=== PATIENT | female | born 1995 | race Caucasian/White ===

== ENCOUNTER → 2016-12-24 | Outpatient (CLI) | payer BC | LOC: MW.CHFP 09:41 | PROVIDERS: ATTEND Emergency Medicine | DX: E03.9 Hypothyroidism, unspecified (principal) | CPT/HCPCS: 36415; 84443 ==

== ENCOUNTER 2017-01-26 21:59 | Emergency (ER) | payer BC ==
--- NOTE | 2017-01-26 22:12 | EDM.PDOC ---
ED HPI GENERAL MEDICAL PROBLEM - General Chief Complaint: Abdominal Pain Stated Complaint: ABDOMINAL PAIN Time Seen by Provider: 01/26/17 22:08 - History of Present Illness INITIAL COMMENTS - FREE TEXT/NARRATIVE: HISTORY AND PHYSICAL: History of present illness: Patient is a 21-year-old white female she is a concern of 10 day history of epigastric abdominal discomfort off and on x10 days if better today this does appear to be related to food she's had no fever chills vomiting diarrhea or other complaints she does have a sibling with similar symptoms with gallbladder disease. Review of systems: As per history of present illness and below otherwise all systems reviewed and negative. Past medical history: As per history of present illness and as reviewed below otherwise noncontributory. Surgical history: As per history of present illness and as reviewed below otherwise noncontributory. Social history: No reported history of drug or alcohol abuse. Family history: As per history of present illness and as reviewed below otherwise noncontributory. Physical exam: HEENT: Atraumatic, normocephalic, pupils reactive, negative for conjunctival pallor or scleral icterus, mucous membranes moist, throat clear, neck supple, nontender, trachea midline. Lungs: Clear to auscultation, breath sounds equal bilaterally, chest nontender. Heart: S1S2, regular, negative for clicks, rubs, or JVD. Abdomen: Soft, nondistended, nontender. Negative for masses or hepatosplenomegaly. Negative for costovertebral tenderness. Pelvis: Stable nontender. Genitourinary: Deferred. Rectal: Deferred. Extremities: Atraumatic, negative for cords or calf pain. Neurovascular unremarkable. Neuro: Awake, alert, oriented. Cranial nerves II through XII unremarkable. Cerebellum unremarkable. Motor and sensory unremarkable throughout. Exam nonfocal. Diagnostics: CBC CMP UA hCG amylase lipase Therapeutics: Toradol 60 mg intramuscular Impression: #1 intermittent abdominal pain rule out biliary colic Definitive disposition and diagnosis as appropriate pending reevaluation and review of above. epigastric area Pain Score (Numeric/FACES): 4 - Related Data Allergies Allergy/AdvReac Type Severity Reaction Status Date / Time No Known Allergies Allergy Verified 01/26/17 22:04 ED ROS GENERAL - Review of Systems Review Of Systems: ROS reveals no pertinent complaints other than HPI. ED EXAM, GENERAL - Physical Exam Exam: See Below (Dictated) Course - Vital Signs Last Recorded V/S: Last Vital Signs Temp 36.5 C 01/26/17 22:04 Pulse 103 H 01/26/17 22:04 Resp 17 01/26/17 22:04 BP 125/82 01/26/17 22:04 Pulse Ox 97 01/26/17 22:04 - Orders/Labs/Meds Labs: Laboratory Tests 01/26/17 01/26/17 01/26/17 Range/Units 22:15 22:15 22:30 WBC 10.04 (4.0-11.0) K/uL RBC 4.37 (4.30-5.90) M/uL Hgb 12.3 (12.0-16.0) g/dL Hct 38.1 (36.0-46.0) % MCV 87.2 (80.0-98.0) fL MCH 28.1 (27.0-32.0) pg MCHC 32.3 (31.0-37.0) g/dL RDW Std Deviation 42.4 (28.0-62.0) fl RDW Coeff of Amelia 13 (11.0-15.0) % Plt Count 311 (150-400) K/uL MPV 9.70 (7.40-12.00) fL Neut % (Auto) 44.4 L (48.0-80.0) % Lymph % (Auto) 36.1 (16.0-40.0) % [place] % (Auto) 3.5 (0.0-15.0) % Eos % (Auto) 15.2 H (0.0-7.0) % Baso % (Auto) 0.8 (0.0-1.5) % Neut # (Auto) 4.5 (1.4-5.7) K/uL Lymph # (Auto) 3.6 H (0.6-2.4) K/uL [place] # (Auto) 0.4 (0.0-0.8) K/uL Eos # (Auto) 1.5 H (0.0-0.7) K/uL Baso # (Auto) 0.1 (0.0-0.1) K/uL Nucleated RBC % 0.0 /100WBC Nucleated RBCs # 0 K/uL Sodium 138 (136-146) mmol/L Potassium 3.8 (3.5-5.1) mmol/L Chloride 107 (98-110) mmol/L Carbon Dioxide 21 (21-31) mmol/L BUN 13 (6.0-23.0) mg/dL Creatinine 0.9 (0.6-1.5) mg/dL Est Cr Clr Drug Dosing 76.89 mL/min Estimated GFR (MDRD) > 60.0 ml/min Glucose 114 H (60-110) mg/dL Calcium 8.7 L (8.8-10.8) mg/dL Total Bilirubin 0.2 (0.1-1.5) mg/dL AST 17 (5-40) IU/L ALT 16 (8-54) IU/L Alkaline Phosphatase 62 (40-150) Total Protein 7.1 (6.0-8.0) g/dL Albumin 4.1 (3.5-5.0) g/dL Globulin 3.0 (2.0-3.5) g/dL Albumin/Globulin Ratio 1.4 (1.3-2.8) Amylase 44 (10-90) U/L Lipase 33 (7-80) U/L Urine Color Urine Appearance Urine pH (5.0-8.0) Ur Specific [place] (1.001-1.035) Urine Protein (NEGATIVE) mg/dL Urine Glucose (UA) (NEGATIVE) mg/dL Urine Ketones (NEGATIVE) mg/dL Urine Occult Blood (NEGATIVE) Urine Nitrite (NEGATIVE) Urine Bilirubin (NEGATIVE) Urine Urobilinogen (<2.0) EU/dL Ur Leukocyte Esterase (NEGATIVE) Urine RBC (0-2/HPF) Urine WBC (0-5/HPF) Ur Epithelial Cells (NONE-FEW) Urine Bacteria (NEGATIVE) Urine HCG, Qual NEGATIVE (NEGATIVE) 01/26/17 Range/Units 22:30 WBC (4.0-11.0) K/uL RBC (4.30-5.90) M/uL Hgb (12.0-16.0) g/dL Hct (36.0-46.0) % MCV (80.0-98.0) fL MCH (27.0-32.0) pg MCHC (31.0-37.0) g/dL RDW Std Deviation (28.0-62.0) fl RDW Coeff of Amelia (11.0-15.0) % Plt Count (150-400) K/uL MPV (7.40-12.00) fL Neut % (Auto) (48.0-80.0) % Lymph % (Auto) (16.0-40.0) % [place] % (Auto) (0.0-15.0) % Eos % (Auto) (0.0-7.0) % Baso % (Auto) (0.0-1.5) % Neut # (Auto) (1.4-5.7) K/uL Lymph # (Auto) (0.6-2.4) K/uL [place] # (Auto) (0.0-0.8) K/uL Eos # (Auto) (0.0-0.7) K/uL Baso # (Auto) (0.0-0.1) K/uL Nucleated RBC % /100WBC Nucleated RBCs # K/uL Sodium (136-146) mmol/L Potassium (3.5-5.1) mmol/L Chloride (98-110) mmol/L Carbon Dioxide (21-31) mmol/L BUN (6.0-23.0) mg/dL Creatinine (0.6-1.5) mg/dL Est Cr Clr Drug Dosing mL/min Estimated GFR (MDRD) ml/min Glucose (60-110) mg/dL Calcium (8.8-10.8) mg/dL Total Bilirubin (0.1-1.5) mg/dL AST (5-40) IU/L ALT (8-54) IU/L Alkaline Phosphatase (40-150) Total Protein (6.0-8.0) g/dL Albumin (3.5-5.0) g/dL Globulin (2.0-3.5) g/dL Albumin/Globulin Ratio (1.3-2.8) Amylase (10-90) U/L Lipase (7-80) U/L Urine Color YELLOW Urine Appearance CLEAR Urine pH 5.5 (5.0-8.0) Ur Specific [place] <= 1.005 (1.001-1.035) Urine Protein NEGATIVE (NEGATIVE) mg/dL Urine Glucose (UA) NEGATIVE (NEGATIVE) mg/dL Urine Ketones NEGATIVE (NEGATIVE) mg/dL Urine Occult Blood TRACE-LYSED (NEGATIVE) Urine Nitrite NEGATIVE (NEGATIVE) Urine Bilirubin NEGATIVE (NEGATIVE) Urine Urobilinogen 0.2 (<2.0) EU/dL Ur Leukocyte Esterase NEGATIVE (NEGATIVE) Urine RBC 0-2 (0-2/HPF) Urine WBC NONE SEEN (0-5/HPF) Ur Epithelial Cells OCCASIONAL (NONE-FEW) Urine Bacteria RARE (NEGATIVE) Urine HCG, Qual (NEGATIVE) Meds: Medications Discontinued Medications Generic Name Dose Route Start Last Admin Trade Name Morgan PRN Reason Stop Dose Admin Ketorolac Tromethamine 60 mg 01/26/17 22:35 01/26/17 22:39 Toradol IM 01/26/17 22:36 60 mg ONETIME ONE Administration Departure - Departure Time of Disposition: 22:51 Disposition: Home, Self-Care 01 Condition: good Clinical Impression: Abdominal pain - Discharge Information Forms: ED Department Discharge Additional Instructions: The following information is given to patients seen in the emergency department who are being discharged to home. This information is to outline your options for follow-up care. We provide all patients seen in our emergency department with a follow-up referral. The need for follow-up, as well as the timing and circumstances, are variable depending upon the specifics of your emergency department visit. If you don't have a primary care physician on staff, we will provide you with a referral. We always advise you to contact your personal physician following an emergency department visit to inform them of the circumstance of the visit and for follow-up with them and/or the need for any referrals to a consulting specialist. The emergency department will also refer you to a specialist when appropriate. This referral assures that you have the opportunity for followup care with a specialist. All of these measure are taken in an effort to provide you with optimal care, which includes your followup. Under all circumstances we always encourage you to contact your private physician who remains a resource for coordinating your care. When calling for followup care, please make the office aware that this follow-up is from your recent emergency room visit. If for any reason you are refused follow-up, please contact the [facility] emergency department at and asked to speak to the emergency department charge nurse. Ultrasound as directed as outpatient followup private medical doctor one to 2 days avoid fatty foods return as needed as discussed
[2017-01-26] MEDS ORDERED: Ketorolac 60 MG/2 ML SDV IM ONE (22:35)
[2017-01-26 22:44] LABS: CHLORIDE,CL 107 mmol/L (98-110); SODIUM,NA 138 mmol/L (136-146)
[2017-01-26 23:04] VITALS: BP 120/80
== END 2017-01-26 23:01 | disposition home or self-care (01) ==
LOC: MW.ED 21:59
DX: R10.9 Unspecified abdominal pain (principal)
CPT/HCPCS: 36415; 80053; 81001; 81025; 82150; 83690; 85025; 96372; 99284; J1885; 99283

== ENCOUNTER 2018-05-05 05:24 | Emergency (ER) | payer OTHER, BC ==
[2018-05-05 05:50] VITALS: BP 146/102
[2018-05-05] MEDS ORDERED: Ketorolac 60 MG/2 ML SDV IM ONE (05:53)
--- NOTE | 2018-05-05 05:58 | EDM.PDOC ---
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 She says she has had nerve issues with her back and she follows with Dr. Taylor in our clinic but is also seen a pain management doctor in [place] and takes gabapentin for her nerve issues and has no major problems with back pain as a result of that. She was in her usual state of good health when she did this activity and felt the sudden onset of pain. She did not pass out or black out and did not fall or hit the area. The pain does not radiate to her leg and there is no numbness or weakness in her leg and she has had no bowel or bladder disturbances. Because she was at work she was unable to take anything for the pain. The patient denies as she is on control 3 months at a time and is compliant with that. Review of systems: As per history of present illness and below otherwise all systems reviewed and negative. Past medical history: As per history of present illness and as reviewed below otherwise noncontributory. Surgical history: As per history of present illness and as reviewed below otherwise noncontributory. Social history: No reported history of drug or alcohol abuse. Family history: As per history of present illness and as reviewed below otherwise noncontributory. Physical exam: General: Well-developed well-nourished overweight female who is nontoxic and indurated into the ED without distress. Vital signs are noted by me HEENT: Atraumatic, normocephalic, negative for conjunctival pallor or scleral icterus, mucous membranes moist, throat clear, neck supple, nontender, trachea midline. Lungs: Clear to auscultation, breath sounds equal bilaterally, chest nontender. Heart: S1S2, regular rate and rhythm no overt murmurs Abdomen: Soft, nondistended, nontender. Negative for costovertebral tenderness. Pelvis: Deferred Genitourinary: Deferred. Rectal: Deferred. Extremities: Atraumatic, negative for cords or calf pain. Neurovascular unremarkable. Neuro: Awake, alert, oriented. Cranial nerves II through XII unremarkable. Cerebellum unremarkable. Motor and sensory unremarkable throughout. Exam nonfocal. Dorsi and plantar flexion are intact 5/5 inclusive of the great toe and all strength in lower extremity is 5/5. Inversion and eversion of the feet is intact and patellar reflexes are +2 over 4 bilaterally Back: There are no midline step-offs in his defects of the thoracic or lumbar spine and there is reproducible tenderness with palpation of the left lower lumbar area without defects or deformities. Diagnostics: [] Therapeutics: Toradol Patient drove herself here and would like to drive home so I will give her muscle relaxers for home and have advised her to have close follow-up with her provider in our clinic and her pain specialist as needed. I will give her diclofenac and advised her to stop her meloxicam and advised her on reasons to return to the ED Impression: Lumbar back pain/strain Definitive disposition and diagnosis as appropriate pending reevaluation and review of above. Back Pain Score (Numeric/FACES): 7 - Related Data Allergies Allergy/AdvReac Type Severity Reaction Status Date / Time No Known Allergies Allergy Verified 01/26/17 22:04 Home Meds: Home Meds ALPRAZolam [Alprazolam] 1 mg PO BID PRN 01/26/17 [History] Gabapentin [Neurontin] 300 mg PO DAILY 01/26/17 [History] Levothyroxine [Synthroid] 100 mcg PO DAILY 01/26/17 [History] Meloxicam 15 mg PO DAILY 01/26/17 [History] Rizatriptan Benzoate [Rizatriptan] 5 mg PO DAILY PRN 01/26/17 [History] DULoxetine [Cymbalta] 60 mg PO DAILY 05/05/18 [History] l-Norgest/E.estradion-E.estrad [Amethia 0.15-0.03-0.01 MG] 1 each PO DAILY 05/05 [History] Past Medical History HEENT History: Reports: None Cardiovascular History: Reports: None Respiratory History: Reports: None Gastrointestinal History: Reports: None Genitourinary History: Reports: None SERVICE COUNSELOR History: Reports: None Musculoskeletal History: Reports: None Neurological History: Reports: Migraines Psychiatric History: Reports: Anxiety Endocrine/Metabolic History: Reports: Hypothyroidism Hematologic History: Reports: None Immunologic History: Reports: None Oncologic (Cancer) History: Reports: None Dermatologic History: Reports: None - Infectious Disease History Infectious Disease History: Reports: None - Past Surgical History Head Surgeries/Procedures: Reports: None HEENT Surgical History: Reports: None Cardiovascular Surgical History: Reports: None GI Surgical History: Reports: Appendectomy Dermatological Surgical History: Reports: None Social & Family History - Tobacco Use Smoking Status *Q: Never Smoker - Caffeine Use Caffeine Use: Reports: None ED ROS GENERAL - Review of Systems Review Of Systems: ROS reveals no pertinent complaints other than HPI. ED EXAM, GENERAL - Physical Exam Exam: See Below (See dictation) Course - Vital Signs Last Recorded V/S: Last Vital Signs Temp 36.6 C 05/05/18 05:41 Pulse 108 H 05/05/18 05:41 Resp 16 05/05/18 05:41 BP 146/102 H 05/05/18 05:41 Pulse Ox 99 05/05/18 05:41 - Orders/Labs/Meds Orders: Active Orders 24 hr Category Date Time Status Ketorolac [Toradol] Med 05/05/18 05:53 Once 60 mg IM ONETIME ONE Medication Orders Ketorolac Tromethamine (Toradol) 60 mg IM ONETIME ONE Stop: 05/05/18 05:54 Meds: Medications Generic Name Dose Route Start Last Admin Trade Name Freq PRN Reason Stop Dose Admin Ketorolac Tromethamine 60 mg 05/05/18 05:53 Toradol IM 05/05/18 05:54 ONETIME ONE Departure - Departure Time of Disposition: 05:57 Disposition: Home, Self-Care 01 Condition: Good Clinical Impression: Lumbar back sprain Qualifiers: Encounter type: initial encounter Qualified Code(s): S33.5XXA - Sprain of ligaments of lumbar spine, initial encounter - Discharge Information Referrals: Javed Taylor MD [Primary Care Provider] - Additional Instructions: The following information is given to patients seen in the emergency department who are being discharged to home. This information is to outline your options for follow-up care. We provide all patients seen in our emergency department with a follow-up referral. The need for follow-up, as well as the timing and circumstances, are variable depending upon the specifics of your emergency department visit. If you don't have a primary care physician on staff, we will provide you with a referral. We always advise you to contact your personal physician following an emergency department visit to inform them of the circumstance of the visit and for follow-up with them and/or the need for any referrals to a consulting specialist. The emergency department will also refer you to a specialist when appropriate. This referral assures that you have the opportunity for followup care with a specialist. All of these measure are taken in an effort to provide you with optimal care, which includes your followup. Under all circumstances we always encourage you to contact your private physician who remains a resource for coordinating your care. When calling for followup care, please make the office aware that this follow-up is from your recent emergency room visit. If for any reason you are refused follow-up, please contact the [facility] emergency department at and ask to speak to the emergency department charge nurse. [facility] Primary care- [place] [address] Use ice to area of discomfort for the next 24 hours and then switch to heat. Please take prescriptions as needed and directed and if you're using the diclofenac please hold her meloxicam. Please call and schedule a follow-up appointment with Dr. Woods in the clinic or with your pain specialist at [place] for further care and reevaluation and return to ER as needed and as discussed - My Orders Last 24 Hours: My Active Orders 05/05/18 05:53 Ketorolac [Toradol] 60 mg IM ONETIME ONE - Assessment/Plan Last 24 Hours: My Active Orders 05/05/18 05:53 Ketorolac [Toradol] 60 mg IM ONETIME ONE
== END 2018-05-05 06:36 | disposition home or self-care (01) ==
LOC: MW.ED 05:24
DX: S33.5XXA Sprain of ligaments of lumbar spine, initial encounter (principal); E03.9 Hypothyroidism, unspecified; F41.9 Anxiety disorder, unspecified; Z79.899 Other long term (current) drug therapy; X50.9XXA Other and unspecified overexertion or strenuous movements or postures, initial encounter
CPT/HCPCS: 96372; 99283; J1885; 99282

== ENCOUNTER 2020-09-07 07:39 | Day surgery (SDC) | payer BC ==
[~2020-09-07 07:39] MED LIST: Lactated Ringers 1,000 ML IV SCH; Lidocaine 2% 5 ML SDV ONE; Midazolam 1 MG/ML 2 ML SDV ONE; Propofol 200 MG/20 ML SDV ONE; fentaNYL 100 MCG/2 ML SDV ONE
--- NOTE | 2020-09-07 08:45 | PCM.PREANE ---
Preanesthetic Assessment - Anesthesia/Transfusion/Family Hx Anesthesia History: Prior Anesthesia Without Reaction Family History of Anesthesia Reaction: No Transfusion History: No Prior Transfusion(s) Intubation History: Unknown - Review of Systems General: No Symptoms, Night Sweats Cardiovascular: No Symptoms Gastrointestinal: Constipation, Hematochezia Neurological: No Symptoms Other: Reports: None - Physical Assessment Vital Signs: Last Vital Signs Temp 36.0 C L 09/07/20 07:52 Pulse 106 H 09/07/20 07:52 Resp 16 09/07/20 07:52 BP 144/88 H 09/07/20 07:52 Pulse Ox 99 09/07/20 07:52 Height: 5 ft 2 in Weight: 98.43 kg ASA Class: 2 Mental Status: Alert & Oriented x3 Airway Class: Mallampati = 2 Dentition: Reports: Normal Dentition Thyro-Mental Finger Breadths: 3 Mouth Opening Finger Breadths: 3 ROM/Head Extension: Full Lungs: Clear to Auscultation, Normal Respiratory Effort Cardiovascular: Regular Rate, Regular Rhythm - Allergies Allergies/Adverse Reactions: Allergies Allergy/AdvReac Type Severity Reaction Status Date / Time No Known Allergies Allergy Verified 09/01/20 08:17 - Blood Blood Available: No - Anesthesia Plan Pre-Op Medication Ordered: None - Acknowledgements Anesthesia Type Planned: MAC Pt an Appropriate Candidate for the Planned Anesthesia: Yes Alternatives and Risks of Anesthesia Discussed w Pt/Guardian: Yes Pt/Guardian Understands and Agrees with Anesthesia Plan: Yes PreAnesthesia Questionnaire HEENT History: Reports: Other (See Below) Other HEENT History: glasses/contacts Cardiovascular History: Reports: None Respiratory History: Reports: None Gastrointestinal History: Reports: Chronic Constipation, GERD, Irritable Bowel Syndrome Genitourinary History: Reports: None COOKER CHIP History: Reports: None Musculoskeletal History: Reports: Back Pain, Chronic Neurological History: Reports: Migraines Psychiatric History: Reports: Anxiety, Depression, Panic Attack Endocrine/Metabolic History: Reports: Hypothyroidism, Obesity/BMI 30+ (BMI 39.7) Hematologic History: Reports: None Immunologic History: Reports: Other (See Below) Other Immunologic History: MRSA Oncologic (Cancer) History: Reports: None Dermatologic History: Reports: None - Infectious Disease History Infectious Disease History: Reports: Herpes (simplex), MRSA - Past Surgical History Head Surgeries/Procedures: Reports: None HEENT Surgical History: Reports: None Cardiovascular Surgical History: Reports: None Respiratory Surgical History: Reports: None GI Surgical History: Reports: Appendectomy Female Surgical History: Reports: None Endocrine Surgical History: Reports: None Neurological Surgical History: Reports: None Musculoskeletal Surgical History: Reports: None Dermatological Surgical History: Reports: None - SUBSTANCE USE Tobacco Use Status *Q: Former Tobacco User Tobacco Use Within Last Twelve Months: No - HOME MEDS Home Medications: Home Meds ALPRAZolam [Alprazolam] 1 mg PO ASDIRECTED PRN 01/26/17 [History] Gabapentin [Neurontin] 300 mg PO BEDTIME 01/26/17 [History] Levothyroxine [Synthroid] 137 mcg PO DAILY 01/26/17 [History] Meloxicam 15 mg PO DAILY 01/26/17 [History] Rizatriptan Benzoate [Rizatriptan] 10 mg SL ASDIRECTED PRN 01/26/17 [History] Ondansetron [Ondansetron ODT] 4 mg SL ASDIRECTED PRN 09/01/20 [History] Pantoprazole Sodium [Protonix] 40 mg PO DAILY 09/01/20 [History] Propranolol HCl [Propranolol] 60 mg PO DAILY 09/01/20 [History] buPROPion HCL [Bupropion HCl Sr] 150 mg PO BID 09/01/20 [History] l-Norgest/E.estradion-E.estrad [Amethia 0.15-0.03-0.01 MG] 1 tab PO DAILY 09/01/20 [History] traZODone HCl [Trazodone HCl] 50 mg PO BEDTIME PRN 09/01/20 [History] valACYclovir HCl [valACYclovir] 2 tab PO ASDIRECTED PRN 09/01/20 [History] - CURRENT (IN HOUSE) MEDS Current Meds: Current Medications Lactated Ringer's (Ringers, Lactated) 1,000 mls @ 125 mls/hr IV ASDIRECTED FRANSISCO Last Admin: 09/07/20 08:25 Dose: 125 mls/hr Documented by: Discontinued Medications Fentanyl (Sublimaze) Confirm Administered Dose 100 mcg .ROUTE .STK-MED ONE Stop: 09/07/20 07:11 Lidocaine (Xylocaine-Mpf 2%) Confirm Administered Dose 5 ml .ROUTE .STK-MED ONE Stop: 09/07/20 07:11 Midazolam HCl (Versed 1 Mg/Ml) Confirm Administered Dose 2 mg .ROUTE .STK-MED ONE Stop: 09/07/20 07:11 Propofol (Diprivan 20 Ml) Confirm Administered Dose 400 mg .ROUTE .STK-MED ONE Stop: 09/07/20 07:11
[2020-09-07] MEDS ORDERED: Midazolam 1 MG/ML 2 ML SDV ONE (09:20)
[2020-09-07] MEDS ORDERED: fentaNYL 100 MCG/2 ML SDV ONE ×2 (09:25→09:36)
[2020-09-07] MEDS ORDERED: Propofol 200 MG/20 ML SDV ONE ×2 (09:25→09:34)
[2020-09-07] MEDS ORDERED: Glycopyrrolate 0.2 MG/ML SDV ONE (09:31)
--- NOTE | 2020-09-07 10:07 | PCM.OPNOTE ---
- General Post-Op/Procedure Note Date of Surgery/Procedure: 09/07/20 Operative Procedure(s): EGD with Biopsies. COlonoscopy with biopsies Findings: submucosal lesion in cecum - likely a lipoma Mucosal irregularity in the rectum Gastritis dictation number [id number] Pre Op Diagnosis: Epigastric pain. constipation and blood in stool Post-Op Diagnosis: submucosal lesion in cecum - likely a lipoma. Mucosal irregularity in the rectum. Gastritis Primary Surgeon: Axel Love Pathology: biopsies from stomach and colon Complications: None Condition: Good
--- NOTE | 2020-09-07 10:22 | PCM.POSTAN ---
POST ANESTHESIA ASSESSMENT - MENTAL STATUS Mental Status: Alert, Oriented - VITAL SIGNS Vital Signs: Last Vital Signs Temp 36.0 C L 09/07/20 07:52 Pulse 120 H 09/07/20 10:05 Resp 15 09/07/20 10:05 BP 110/80 09/07/20 10:05 Pulse Ox 100 09/07/20 10:05 - RESPIRATORY Respiratory Status: Respiratory Rate WNL, Airway Patent, O2 Saturation Stable - CARDIOVASCULAR CV Status: Pulse Rate WNL, Blood Pressure Stable - GASTROINTESTINAL GI Status: No Symptoms - PAIN Pain Score: 0 - POST OP HYDRATION Hydration Status: Adequate & Stable - OBSERVATIONS Free Text/Narrative:: No anesthesia problems
--- NOTE | 2020-09-07 10:31 | PCM48HPAN ---
Post Anesthesia Note - EVALUATION WITHIN 48HRS OF ANESTHETIC Vital Signs in Normal Range: Yes Patient Participated in Evaluation: Yes Respiratory Function Stable: Yes Airway Patent: Yes Cardiovascular Function Stable: Yes Hydration Status Stable: Yes Pain Control Satisfactory: Yes Nausea and Vomiting Control Satisfactory: Yes Mental Status Recovered: Yes Vital Signs: Last Vital Signs Temp 36.0 C L 09/07/20 07:52 Pulse 120 H 09/07/20 10:05 Resp 15 09/07/20 10:05 BP 110/80 09/07/20 10:05 Pulse Ox 100 09/07/20 10:05 - COMMENTS/OBSERVATIONS Free Text/Narrative:: No anesthesia problems
[2020-09-07 10:33] VITALS: BP 128/70; PULSE 115
--- NOTE | 2020-09-07 16:51 | OR ---
SURGEON: SADIA COLUNGA MD DATE OF PROCEDURE: 09/07/2020 PREOPERATIVE DIAGNOSES: 1. Epigastric pain. 2. Constipation. 3. Occasional blood in stool. POSTOPERATIVE DIAGNOSES: 1. Gastritis. 2. Submucosal lesion in the cecum, potentially a lipoma. 3. Mucosal irregularity in the rectum. PROCEDURES PERFORMED: 1. Colonoscopy with biopsies. 2. Esophagogastroduodenoscopy with biopsies. PRIMARY SURGEON: Sadia Colunga MD ANESTHESIA: With Anesthesiology. EXTENT OF COLONOSCOPY: To the cecum and terminal ileum. EXTENT OF EGD: To at least the second part of duodenum. WITHDRAWAL TIME FOR COLONOSCOPY: 7 minutes. LIMITATIONS: None. BOWEL PREP: Very good. REASON FOR PROCEDURE: The patient is a pleasant 25-year-old female who for the past 6 months will have epigastric pain. She denies any difficulty swallowing. Denies any heartburn. The patient says the tenderness is sometimes associated with food. She has been started on antacid. Originally, she said it was not helping, but now she says it seems the antacids have been helping with the pain. The patient also states that she has occasional blood in her stool. She states she has been told she has IBS with constipation. She uses stool softeners for her bowel movements. She denies any family history of colon cancer. PROCEDURE IN DETAIL: Physical examination was performed. The major risks and benefits associated with the procedure were explained to the patient in detail. The patient verbalized understanding of the same. Now, an IV was started. EKG, pulse, pulse oximetry, blood pressure, and capnography monitored throughout the procedure. Continuous oxygen and sedation were provided by the anesthesiologist. The patient was placed into left lateral decubitus position and a bite block were placed and sedation was begun. After adequate sedation was achieved, an upper endoscope was advanced under direct visualization without any difficulty in the upper GI tract. The anatomy and mucosa of the esophagus, GE junction, stomach, pylorus, and first and second part of duodenum were inspected. Duodenum appeared normal and the scope was withdrawn in the stomach. Both retro and antegrade views of the stomach were done. The patient had a patch of gastritis in the body in the lesser curvature of the stomach. No ulcerations seen. Biopsies were taken of the pylorus to check for H pylori and of the area of the gastritis. The scope was brought up to the GE junction. GE junction was approximately 36 cm from the incisors. GE junction appeared intact with a good squamocolumnar junction. The scope was brought back in the stomach. Biopsy sites had good hemostasis. The stomach was desufflated. The scope was brought up to the esophagus. Esophagus appeared normal. Now, the scope was completely removed and this part of the procedure was terminated. Gloves and scopes were changed. Now, a rectal exam was performed. No rectal masses or polyps were felt. Now, well-lubricated Olympus colonoscope was entered in the rectum and advanced under direct visualization to the level of the cecum. The cecum was identified both visual and anatomic landmarks. Photographs were taken of the cecal cap. Right in the cecum, the patient had about a 2 to 3 cm protruding mass that seemed to be extraluminal. Mucosa over it appeared normal. This could be some type of lipoma. Did do biopsies of the overlying mucosa. The terminal ileum was also intubated. The scope was then slowly withdrawn in a somewhat circular fashion looking at the color, texture, anatomy, and integrity of mucosa from cecum to the anal canal. The patient had a very good bowel prep with some very minimal liquid stool, which was suctioned and irrigated out for a great look at the mucosa. Right in the rectum, the patient had mucosa which had a slight irregularity and that had smaller whitish spots circumferentially. I did do multiple biopsies of this mucosa. The scope was retroflexed in the rectum. Now, biopsies were taken of the mucosa. Scope was then completely removed and the procedure was terminated. ENDOSCOPIC DIAGNOSES: 1. Gastritis. 2. Likely submucosal lesion in the cecum, possibly a lipoma. 3. Some irregular mucosa in the rectum, biopsied. RECOMMENDATIONS: 1. The patient should continue her PPIs. She may follow in the clinic to go over the pathology of her EGD. 2. Followup colonoscopy will depend on pathology, but most likely another one in 10 years or sooner if she develops signs or symptoms such as change in bowel habits or blood in her stool. ZENIA / BOLIVAR /[id number]
== END 2020-09-07 10:15 | disposition home or self-care (01) ==
LOC: MW.SDS 07:39
PROVIDERS: ATTEND Surgery
DX: K59.00 Constipation, unspecified (principal); K29.50 Unspecified chronic gastritis without bleeding; K63.89 Other specified diseases of intestine; K21.9 Gastro-esophageal reflux disease without esophagitis; E03.9 Hypothyroidism, unspecified; K12.0 Recurrent oral aphthae; E66.01 Morbid (severe) obesity due to excess calories; G89.29 Other chronic pain; Z79.899 Other long term (current) drug therapy; Z87.891 Personal history of nicotine dependence; Z68.41 Body mass index [BMI] 40.0-44.9, adult
CPT/HCPCS: 36415; 43239; 45380; 84703; J2001; J2250; J2704; J3010; J3490; J7120; 00813; 88305; 88312

== ENCOUNTER 2023-09-25 19:12 | Emergency (ER) | payer SELFPAY ==
[2023-09-25] MEDS ORDERED: Sodium Chloride 0.9% 10 ML Syringe FLUSH PRN (19:24)
[2023-09-25] MEDS ORDERED: Sodium Chloride 0.9% 2.5 ML Syringe FLUSH PRN (19:24)
[2023-09-25 19:30] LABS: BASOPHILS ABSOLUTE AUTO 0.08 K/uL (0.00-0.20); EOSINOPHILS ABSOLUTE AUTO 0.13 K/uL (0.00-0.45); EOSINOPHILS PERCENT AUTO 1.5 % (0.0-6.0); HEMATOCRIT 41.5 % (37.0-47.0); HEMOGLOBIN 14.4 g/dL (12.0-16.0); IMMATURE GRAN ABSOLUTE AUTO 0.02 K/uL (0.00-0.05); IMMATURE GRAN PERCENT AUTO 0.2 % (0.0-0.4); LYMPHOCYTES ABSOLUTE AUTO 1.91 K/uL (1.00-4.80); LYMPHOCYTES PERCENT AUTO 22.7 % (24.0-44.0); MEAN CORPUSCULAR HEMOGLOBIN 30.3 pg (28.0-32.0); MEAN CORPUSCULAR HGB CONC 34.7 g/dL (32.0-36.0); MEAN CORPUSCULAR VOLUME 87.2 fL (83.0-99.0); MEAN PLATELET VOLUME 9.2 fL (9.4-12.3); MONOCYTES ABSOLUTE AUTO 0.62 K/uL (0.00-0.80); MONOCYTES PERCENT AUTO 7.4 % (0.0-8.0); NEUTROPHILS ABSOLUTE AUTO 5.66 K/uL (1.80-7.70); NEUTROPHILS PERCENT AUTO 67.2 % (41.0-71.0); PLATELET COUNT,PLT 271 K/uL (150-400); RED BLOOD CELL COUNT 4.76 M/uL (4.10-5.30); WHITE BLOOD CELL COUNT,WBC 8.42 K/uL (3.9-11.3)
[2023-09-25 19:58] LABS: A/G RATIO 1.1 (0.9-1.6); ALBUMIN 3.9 g/dL (3.4-5.0); BILIRUBIN TOTAL 0.7 mg/dL (0.2-1.0); CALCIUM 9.2 mg/dL (8.5-10.1); CARBON DIOXIDE,CO2 23.8 mmol/L (21.0-32.0); EST CRCL DRUG DOSING (CG) 65.06 mL/min; POTASSIUM,K 3.3 mmol/L (3.5-5.1); PROTEIN TOTAL,TP 7.6 g/dL (6.4-8.2)
[2023-09-25] MEDS ORDERED: Acetaminophen 325 MG Tab PO ONE (20:15)
[2023-09-25] MEDS ORDERED: Sodium Chloride 0.9% 1,000 ML IV STA (20:18)
[2023-09-25] MEDS ORDERED: Ketorolac 30 MG/ML SDV IVPUSH ONE (21:00)
[2023-09-25 21:34] LABS: APPEARANCE,URINE CLEAR; BILIRUBIN,URINE NEGATIVE (NEGATIVE); COLOR,URINE YELLOW; GLUCOSE,URINE NEGATIVE (NEGATIVE); KETONES,URINE TRACE mg/dL (NEGATIVE); LEUKOCYTE ESTERASE,URINE NEGATIVE (NEGATIVE); NITRITE,URINE NEGATIVE (NEGATIVE); OCCULT BLOOD,URINE TRACE-INTACT (NEGATIVE); PH,URINE 5.5 (5.0-8.0); PROTEIN,URINE NEGATIVE (NEGATIVE); UROBILINOGEN,URINE 0.2 EU/dL (<2.0)
[2023-09-25 21:37] LABS: BACTERIA,URINE 1+ (NEGATIVE); EPITHELIAL CELLS,URINE FEW (NONE-FEW); RBC,URINE 0-2 (0-2/HPF); WBC,URINE 0-3 (0-5/HPF)
[2023-09-25 22:48] VITALS: BP 125/76; PULSE 88
== END 2023-09-25 22:45 | disposition home or self-care (01) ==
LOC: MW.ED 19:12
DX: R40.4 Transient alteration of awareness (principal); E03.9 Hypothyroidism, unspecified; Z79.899 Other long term (current) drug therapy
CPT/HCPCS: 36415; 70450; 71045; 72125; 80053; 81001; 84484; 84703; 85025; 93005; 96361; 96374; 99285; A9270; J1885; J3490; J7030; 93010; 99284

== ENCOUNTER 2024-04-05 17:00 | Emergency (ER) | payer SELFPAY ==
[2024-04-05 17:13] LABS: BASOPHILS ABSOLUTE AUTO 0.09 K/uL (0.00-0.20); EOSINOPHILS ABSOLUTE AUTO 0.24 K/uL (0.00-0.45); EOSINOPHILS PERCENT AUTO 2.5 % (0.0-6.0); HEMATOCRIT 37.9 % (37.0-47.0); IMMATURE GRAN ABSOLUTE AUTO 0.02 K/uL (0.00-0.05); IMMATURE GRAN PERCENT AUTO 0.2 % (0.0-0.4); LYMPHOCYTES ABSOLUTE AUTO 2.23 K/uL (1.00-4.80); LYMPHOCYTES PERCENT AUTO 23.7 % (24.0-44.0); MEAN CORPUSCULAR HEMOGLOBIN 29.7 pg (28.0-32.0); MEAN CORPUSCULAR HGB CONC 34.3 g/dL (32.0-36.0); MEAN CORPUSCULAR VOLUME 86.5 fL (83.0-99.0); MEAN PLATELET VOLUME 9.1 fL (9.4-12.3); MONOCYTES ABSOLUTE AUTO 0.69 K/uL (0.00-0.80); MONOCYTES PERCENT AUTO 7.3 % (0.0-8.0); NEUTROPHILS ABSOLUTE AUTO 6.15 K/uL (1.80-7.70); NEUTROPHILS PERCENT AUTO 65.3 % (41.0-71.0); PLATELET COUNT,PLT 310 K/uL (150-400); RED BLOOD CELL COUNT 4.38 M/uL (4.10-5.30); WHITE BLOOD CELL COUNT,WBC 9.42 K/uL (3.9-11.3)
[2024-04-05] MEDS: Sodium Chloride 0.9% 1,000 ML IV STA ×2 (17:29→18:32)
[2024-04-05 17:47] LABS: ALBUMIN 3.6 g/dL (3.4-5.0); BILIRUBIN TOTAL 0.5 mg/dL (0.2-1.0); CALCIUM 8.6 mg/dL (8.5-10.1); CARBON DIOXIDE,CO2 21.8 mmol/L (21.0-32.0); EST CRCL DRUG DOSING (CG) 76.31 mL/min; MAGNESIUM 1.8 mg/dL (1.8-2.4); POTASSIUM,K 3.2 mmol/L (3.5-5.1); PROTEIN TOTAL,TP 7.1 g/dL (6.4-8.2); TSH ULTRASENSITIVE 0.02 uIU/mL (0.36-3.74)
[2024-04-05 18:04] LABS: T4 FREE 1.73 ng/dL (0.76-1.46)
[2024-04-05 18:57] LABS: CORONAVIRUS COVID-19 NAA NEGATIVE (NEGATIVE); INFLUENZA A NAA NEGATIVE (NEGATIVE); INFLUENZA B NAA NEGATIVE (NEGATIVE)
[2024-04-05 19:39] LABS: APPEARANCE,URINE CLEAR; BILIRUBIN,URINE NEGATIVE (NEGATIVE); COLOR,URINE YELLOW; GLUCOSE,URINE NEGATIVE (NEGATIVE); KETONES,URINE NEGATIVE (NEGATIVE); LEUKOCYTE ESTERASE,URINE NEGATIVE (NEGATIVE); NITRITE,URINE NEGATIVE (NEGATIVE); OCCULT BLOOD,URINE NEGATIVE (NEGATIVE); PROTEIN,URINE TRACE mg/dL (NEGATIVE); UROBILINOGEN,URINE 0.2 EU/dL (<2.0)
[2024-04-05 19:48] LABS: AMPHETAMINES SCREEN, URINE NEGATIVE (CUTOFF=500); BARBITURATE SCREEN,URINE NEGATIVE (CUTOFF=200); BENZODIAZEPINES SCREEN,URINE NEGATIVE (CUTOFF=150); BUPRENORPHINE SCREEN,URINE NEGATIVE (CUTOFF=10); METHADONE SCREEN, URINE NEGATIVE (CUTOFF=200); METHAMPHETAMINES SCREEN, URINE NEGATIVE (CUTOFF=500); OXYCODONE SCREEN,URINE NEGATIVE (CUT0FF=100); PCP SCREEN,URINE NEGATIVE (CUTOFF=25); THC SCREEN,URINE 20 NG/ML NEGATIVE (CUTOFF=50)
[2024-04-05 19:49] LABS: BACTERIA,URINE FEW (NEGATIVE); EPITHELIAL CELLS,URINE RARE (NONE-FEW); RBC,URINE 0-2 (0-2/HPF); WBC,URINE 0-2 (0-5/HPF)
[2024-04-05] MEDS: levETIRAcetam 500 MG Tab PO STA (20:38)
[2024-04-05 20:47] VITALS: BP 111/62; PULSE 92
== END 2024-04-05 20:47 | disposition home or self-care (01) ==
LOC: MW.ED 17:00
DX: G40.909 Epilepsy, unspecified, not intractable, without status epilepticus (principal); F11.10 Opioid abuse, uncomplicated; Z75.8 Other problems related to medical facilities and other health care; E03.9 Hypothyroidism, unspecified; Z79.899 Other long term (current) drug therapy
CPT/HCPCS: 0240U; 36415; 70450; 80053; 80305; 80307; 81001; 83735; 84439; 84443; 84484; 84703; 85025; 93005; 96360; 96361; 99284; A9270; J7030; 93010; 99283